=== PATIENT | male | born 1980 | race Caucasian/White ===

== ENCOUNTER → 2016-05-19 | Outpatient (CLI) | payer OTHER ==
--- NOTE | 2016-05-22 07:57 | US ---
Ultrasound left lower extremity HISTORY: Left knee pain Ultrasound performed at the level of the patient's pain. Exam correlated to plain film April 25 An anechoic focus measuring 5.7 x 1.6 x 4.3 cm is present in the popliteal fossa. Grayscale, color Do ppler imaging performed, no color flow. Some low-level internal echoes noted. 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
== END | disposition home or self-care (01) ==
LOC: RADUSYALE 10:26
PROVIDERS: ATTEND Physician Assistant Medical
DX: M79.89 Other specified soft tissue disorders (principal)